=== PATIENT | female | born 1970 | race Caucasian/White ===

== ENCOUNTER → 2017-02-15 | Outpatient (CLI) | payer OTHER ==
--- NOTE | 2017-02-16 11:11 | RADIOLOGY REPORT PS360 ---
MRI-UP EXT ANY JNT W/O-RT HISTORY: Right shoulder pain with limited range of motion RIGHT SHOULDER PAIN ORDERING PHYSICIAN: Willie Drummond MD PATIENT AGE: 46 years COMPARISON: Radiograph of 02/06/2017 TECHNIQUE: Standard multiplanar multiecho sequences are performed without contrast. FINDINGS: There is downsloping of the acromion with hypertrophic changes along the inferior aspect of the acromion and at the acromioclavicular joint with resultant subacromial stenosis and impingement upon the supraspinatus tendon. There is thickening of the supraspinatus tendon consistent with tendinopathy/tendinosis with discontinuity of the supraspinatus tendon distally at the insertion upon the greater tuberosity with focal increased T2 signal at this region consistent with full-thickness of the supraspinatus tendon. There may be a few intact fibers anteriorly. The supraspinatus muscle is not retracted. There is thickening of the infraspinatus tendon with increased T2 signal consistent with tendinopathy/tendinosis. There is a small amount fluid in the subdeltoid region. No definite labral tear the subscapularis and teres minor tendons appear intact. Heterogeneous signal intensity involves the humeral head with a small defect at the base of the greater tuberosity and may be due to a subcortical cystic area. There is a small shoulder joint effusion. Fluid is also present in the bicipital tendon sheath. Bicipital tendon is in place and appears intact. No obvious fracture. IMPRESSION: 1. Acromioclavicular arthropathy with hypertrophic change along the inferior surface of the low-lying acromion with resultant impingement upon the rotator cuff. 2. Tendinopathy/tendinosis of both supraspinatus and infraspinatus tendon with a full-thickness tear of the supraspinatus tendon without musculotendinous retraction. There may be some intact fibers anteriorly of the supraspinatus tendon. 3. Heterogeneous signal intensity of the humeral head at the greater tuberosity with subcortical cystic change
== END ==
LOC: RAD 07:43
DX: M25.511 Pain in right shoulder (principal)